=== PATIENT | female | born 1955 | race Asian ===

== ENCOUNTER → 2017-06-30 | Outpatient (CLI) | payer OTHER ==
[2017-06-30 11:51] LABS: HEMOGLOBIN 11.1 g/dL (12.5-16.0); MEAN PLATELET VOLUME 10.9 fl (7.4-10.4); RED BLOOD COUNT 4.6 M/mm3 (4.10-5.30); RED CELL DISTRIBUTION WIDTH 15.2 % (11.5-14.5); WHITE BLOOD COUNT 8.7 K/mm3 (4.8-10.8)
[2017-06-30 12:12] LABS: ALBUMIN 4.1 g/dL (3.5-5.0); BUN/CREATININE RATIO 18.8 (6.0-26.0); CALCIUM 9.5 mg/dL (8.4-10.2); POTASSIUM 4.1 mmol/L (3.6-5.0); TOTAL PROTEIN 8.4 g/dL (6.3-8.2)
== END ==
LOC: LAB 11:30
PROVIDERS: Family Medicine
DX: E11.9 Type 2 diabetes mellitus without complications (principal); E03.9 Hypothyroidism, unspecified

== ENCOUNTER → 2017-07-14 | Outpatient (CLI) | payer OTHER | LOC: MAMMO 07-07 13:00 | DX: Z12.31 Encounter for screening mammogram for malignant neoplasm of breast (principal) ==

== ENCOUNTER → 2018-11-25 | Outpatient (CLI) | payer BC | LOC: RAD 08:35 | DX: M25.561 Pain in right knee (principal) ==

== ENCOUNTER → 2019-02-07 | Outpatient (CLI) | payer BC ==
[2019-02-07 11:17] LABS: EOS # 0.1 (0.04-0.40); EOS % 1.1 % (1.0-5.0); HEMOGLOBIN 10.7 g/dL (12.5-16.0); LYMPH# 1.4 (1.50-4.00); MEAN CELL VOLUME 79 fl (78-100); MEAN CORPUSCULAR HEMOGLOBIN 25 pg (27-31); MEAN CORPUSCULAR HGB CONC 32 g/dL (33-37); MEAN PLATELET VOLUME 11.1 fl (7.4-10.4); MONO # 0.3 (0.20-0.80); NEU # 4.4 (1.40-6.50); PLATELET COUNT 176 K/mm3 (130-400); RED BLOOD COUNT 4.29 M/mm3 (4.10-5.30); WHITE BLOOD COUNT 6.1 K/mm3 (4.8-10.8)
[2019-02-07 12:13] LABS: ALBUMIN 3.6 g/dL (3.4-4.8); POTASSIUM 4.2 mmol/L (3.5-5.1)
[2019-02-07 12:14] LABS: CALCIUM 9.7 mg/dL (8.3-10.5)
[2019-02-07 12:15] LABS: TOTAL PROTEIN 8.2 g/dL (6.2-8.1)
[2019-02-07 12:17] LABS: TOTAL BILIRUBIN 0.7 mg/dL (0.2-1.2)
== END ==
LOC: LAB 10:56
PROVIDERS: Family Medicine
DX: Z00.00 Encounter for general adult medical examination without abnormal findings (principal); Z13.220 Encounter for screening for lipoid disorders; E11.9 Type 2 diabetes mellitus without complications; E03.9 Hypothyroidism, unspecified

== ENCOUNTER → 2019-02-09 | Outpatient (CLI) | payer BC | LOC: RAD 09:59 → MAMMO 10:45 | DX: Z12.31 Encounter for screening mammogram for malignant neoplasm of breast (principal); R92.0 Mammographic microcalcification found on diagnostic imaging of breast; M25.561 Pain in right knee; M17.11 Unilateral primary osteoarthritis, right knee ==

== ENCOUNTER → 2019-02-14 | Outpatient (CLI) | payer BC | LOC: MAMMO 07:29 | DX: R92.0 Mammographic microcalcification found on diagnostic imaging of breast (principal) ==

== ENCOUNTER → 2019-05-26 | Day surgery (SDC) | payer BC | LOC: MSO 09:12 | DX: Z12.11 Encounter for screening for malignant neoplasm of colon (principal); Z86.010 Personal history of colon polyps; Z83.71 Family history of colonic polyps; Z90.49 Acquired absence of other specified parts of digestive tract; E11.9 Type 2 diabetes mellitus without complications; Z79.84 Long term (current) use of oral hypoglycemic drugs; I10 Essential (primary) hypertension; G47.33 Obstructive sleep apnea (adult) (pediatric); E03.9 Hypothyroidism, unspecified; Z79.899 Other long term (current) drug therapy | CPT/HCPCS: 00812; J2704; J7030 ==

== ENCOUNTER → 2020-03-07 | Outpatient (CLI) | payer BC | LOC: MAMMO 12:49 | DX: Z12.31 Encounter for screening mammogram for malignant neoplasm of breast (principal) ==

== ENCOUNTER → 2020-06-29 | Outpatient (CLI) | payer BC | LOC: LAB 12:15 | DX: R05 Cough (principal); Z20.828 Contact with and (suspected) exposure to other viral communicable diseases ==

== ENCOUNTER → 2020-07-02 | Outpatient (CLI) | payer BC ==
[2020-07-02 12:16] LABS: EOS # 0.1 (0.04-0.40); EOS % 0.9 % (1.0-5.0); LYMPH# 1.4 (1.50-4.00); MEAN CELL VOLUME 80 fl (78-100); MEAN CORPUSCULAR HGB CONC 31 g/dL (33-37); MEAN PLATELET VOLUME 11.2 fl (7.4-10.4); MONO # 0.4 (0.20-0.80); NEU # 6.1 (1.40-6.50); PLATELET COUNT 213 K/mm3 (130-400); RED BLOOD COUNT 4.52 M/mm3 (4.10-5.30); RED CELL DISTRIBUTION WIDTH 15.5 % (11.5-14.5); WHITE BLOOD COUNT 7.9 K/mm3 (4.8-10.8)
[2020-07-02 12:20] LABS: MEAN CORPUSCULAR HEMOGLOBIN 24 pg (27-31)
[2020-07-02 12:30] LABS: POTASSIUM 4.5 mmol/L (3.5-5.1)
[2020-07-02 12:31] LABS: ALBUMIN 3.8 g/dL (3.4-4.8)
[2020-07-02 12:32] LABS: CALCIUM 9.4 mg/dL (8.3-10.5)
[2020-07-02 12:35] LABS: TOTAL BILIRUBIN 0.7 mg/dL (0.2-1.2)
== END ==
LOC: LAB 11:16
PROVIDERS: Family Medicine
DX: Z00.00 Encounter for general adult medical examination without abnormal findings (principal); E78.5 Hyperlipidemia, unspecified; E03.9 Hypothyroidism, unspecified; E13.9 Other specified diabetes mellitus without complications

== ENCOUNTER → 2020-08-09 | Outpatient (CLI) | payer BC | LOC: RAD 08:18 | DX: I12.9 Hypertensive chronic kidney disease with stage 1 through stage 4 chronic kidney disease, or unspecified chronic kidney disease (principal); N18.31 Chronic kidney disease, stage 3a ==

== ENCOUNTER → 2020-11-22 | Outpatient (CLI) | payer BC ==
[~2020-11-22] MED LIST: GLIMEPIRIDE4 MG PO; LEVOTHYROXINE112 MCG PO; MELATONIN1 MG PO; METFORMIN HYD1000 MG PO; PAROXETINE HYDR40 MG PO; SIMVASTATIN20 M1 PO; ZESTRIL5 M1 PO
[2020-11-22 15:01] LABS: ALBUMIN 3.7 g/dL (3.4-4.8)
[2020-11-22 15:02] LABS: POTASSIUM 4.8 mmol/L (3.5-5.1)
[2020-11-22 15:03] LABS: CALCIUM 8.9 mg/dL (8.3-10.5)
[2020-11-22 15:27] LABS: URINE APPEARANCE HAZY; URINE BILIRUBIN 1+ (NEGATIVE); URINE BLOOD NEGATIVE (NEGATIVE); URINE COLOR YELLOW; URINE KETONE NEGATIVE (NEGATIVE); URINE LEUKOCYTE ESTERASE NEGATIVE (NEGATIVE); URINE NITRATE NEGATIVE (NEGATIVE); URINE PROTEIN(semi-quant) 1+ mg/dL (NEGATIVE); URINE UROBILINOGEN 1 mg/dL (NORMAL)
[2020-11-22 15:28] LABS: URINE MUCUS PRESENT (NOT PRESENT)
== END ==
LOC: LAB 14:36
PROVIDERS: Internal Medicine Nephrology
DX: I12.9 Hypertensive chronic kidney disease with stage 1 through stage 4 chronic kidney disease, or unspecified chronic kidney disease (principal); E11.21 Type 2 diabetes mellitus with diabetic nephropathy; D63.1 Anemia in chronic kidney disease; N18.31 Chronic kidney disease, stage 3a

== ENCOUNTER 2020-11-29 15:54 | Outpatient (RCR) | payer BC ==
[~2020-11-29] VITALS: Ht 144.8 cm; Wt 96.4 kg
[2020-11-29 16:06] VITALS: BP 118/71
[2020-11-29] MEDS ORDERED: SIMVASTATIN20 M1 PO (16:24)
[2020-11-29] MEDS ORDERED: PAROXETINE HYDR40 MG PO (16:24)
[2020-11-29] MEDS ORDERED: LEVOTHYROXINE112 MCG PO (16:25)
[2020-11-29] MEDS ORDERED: ZESTRIL5 M1 PO (16:25)
[2020-11-29] MEDS ORDERED: MELATONIN1 MG PO (16:26)
[2020-11-29] MEDS ORDERED: METFORMIN HYD1000 MG PO (16:26)
[2020-11-29] MEDS ORDERED: GLIMEPIRIDE4 MG PO (16:26)
--- NOTE | 2020-11-29 16:42 | NUR ---
FEELING SLIGHTLY DIZZY. INFUSION RATE DECREASED TO 250ML/HR.
--- NOTE | 2020-11-29 16:54 | NUR ---
CONTINUES TO FEEL LIGHTHEADED. DECREASE NULECIT INFUSION TO 200ML/HR.
--- NOTE | 2020-11-29 17:06 | NUR ---
FEELING BETTER. ICE WATER AND WARM BLANKET PROVIDED.
--- NOTE | 2020-11-29 17:26 | NUR ---
C/O UPSET STOMACH. DRY HEAVES. INFUSION STOPPED WITH 17ML LEFT TO INFUSE. LEFT MESSAGE WITH ON-CALL PROVIDER AT [facility] TO REQUEST ANTIEMETIC.
--- NOTE | 2020-11-29 17:40 | NUR ---
TO BATHROOM. LARGE BM. STILL FEELING NAUSEOUS. LIGHTHEADED. W/C TO RETURN BACK TO BED. PLACE IN [place] POSITION. DIAPHORETIC.
[2020-11-29 17:50] VITALS: BP 110/72
--- NOTE | 2020-11-29 17:53 | NUR ---
TELEPHONE ORDER FROM [facility] FOR ZOFRAN 8MG IV X1 DOSE NOW. HAVE NOT HEARD BACK FROM PROVIDER BACK HOE MACHINE OPERATOR FROM [facility].
--- NOTE | 2020-11-29 18:22 | NUR ---
CALL [facility] AGAIN. UNABLE TO SPEAK WITH STAFF MINE [employer] OFFICER X2 ATTEMPT. STILL HAVE NOT HEARD BACK FROM PROVIDER WOUND TREATMENT RN. SPEAK WITH DR BOYD, PATIENT'S PCP. RECEIVE ORDERS FOR CMP, CBC, AND 1L NS TO INFUSE OVER [address] BOYD BACK WITH LAB RESULTS.
--- NOTE | 2020-11-29 18:34 | NUR ---
VOMITS APPROX 50ML WHEN UP TO BATHROOM.
--- NOTE | 2020-11-29 18:52 | NUR ---
RETURNS BACK TO BED. POSITION PER COMFORT. IV FLUIDS INFUSING PER ORDER. REPORT PROVIDED TO DALLIN ARROYO. PATIENT NO LONGER DIAPHORETIC. SKIN NO LONGER PALE.
--- NOTE | 2020-11-29 18:54 | NUR ---
BILL CONTACTED PER PATIENT REQUEST. MESSAGE LEFT FOR HIM TO CALL.
--- NOTE | 2020-11-29 20:31 | NUR ---
Dr. Rincon notified of lab results. Pt tolerating Diet Sprite and crackers. Dr. Rincon stated she can DC for home.
[2020-11-29 21:10] VITALS: BP 118/80
--- NOTE | 2020-11-29 21:13 | NUR ---
PT DISCHARGED FOR HOME.
== END 2021-02-27 | disposition still patient (30) ==
LOC: AMSURD
DX: D63.1 Anemia in chronic kidney disease (principal); N18.31 Chronic kidney disease, stage 3a; Z79.899 Other long term (current) drug therapy
CPT/HCPCS: J2405; J2916; J7030; J7050

== ENCOUNTER → 2020-11-29 | Outpatient (CLI) | payer BC ==
[2020-11-29 17:50] VITALS: BP 110/72
[2020-11-29 19:37] LABS: HEMOGLOBIN 12.1 g/dL (12.5-16.0); MEAN PLATELET VOLUME 10.2 fl (7.4-10.4); RED BLOOD COUNT 4.96 M/mm3 (4.10-5.30); WHITE BLOOD COUNT 13.7 K/mm3 (4.8-10.8)
[2020-11-29 19:46] LABS: ALBUMIN 3.4 g/dL (3.4-4.8)
[2020-11-29 19:48] LABS: CALCIUM 8.9 mg/dL (8.3-10.5)
[2020-11-29 19:51] LABS: TOTAL BILIRUBIN 0.5 mg/dL (0.2-1.2)
== END ==
LOC: LAB 18:28
PROVIDERS: Family Medicine
DX: D63.1 Anemia in chronic kidney disease (principal)

== ENCOUNTER → 2021-02-11 | Outpatient (CLI) | payer BC ==
[2021-02-11 11:37] LABS: BASO # 0.01 (0.02-0.10); EOS # 0.05 (0.04-0.40); EOS % 0.7 % (1.0-5.0); HEMATOCRIT 36.4 % (37.0-47.0); HEMOGLOBIN 11.4 g/dL (12.5-16.0); LYMPH# 1.61 (1.50-4.00); MEAN CELL VOLUME 85 fl (78-100); MEAN CORPUSCULAR HEMOGLOBIN 27 pg (27-31); MEAN CORPUSCULAR HGB CONC 31 g/dL (33-37); MEAN PLATELET VOLUME 10.6 fl (7.4-10.4); MONO # 0.25 (0.20-0.80); NEU # 5.53 (1.40-6.50); PLATELET COUNT 153 K/mm3 (130-400); RED BLOOD COUNT 4.28 M/mm3 (4.10-5.30); RED CELL DISTRIBUTION WIDTH 16.5 % (11.5-14.5); WHITE BLOOD COUNT 7.5 K/mm3 (4.8-10.8)
[2021-02-11 11:44] LABS: ALBUMIN 3.6 g/dL (3.4-4.8); POTASSIUM 4.4 mmol/L (3.5-5.1)
[2021-02-11 11:45] LABS: CALCIUM 9.9 mg/dL (8.3-10.5)
[2021-02-11 11:47] LABS: TOTAL PROTEIN 7.7 g/dL (6.2-8.1)
[2021-02-11 11:48] LABS: TOTAL BILIRUBIN 0.6 mg/dL (0.2-1.2)
== END ==
LOC: LAB 11:07
PROVIDERS: Family Medicine
DX: E13.22 Other specified diabetes mellitus with diabetic chronic kidney disease (principal); N18.1 Chronic kidney disease, stage 1; D63.1 Anemia in chronic kidney disease; D50.9 Iron deficiency anemia, unspecified; E03.9 Hypothyroidism, unspecified

== ENCOUNTER → 2021-02-26 | Outpatient (CLI) | payer BC | LOC: MAMMO 09:15 | DX: Z12.39 Encounter for other screening for malignant neoplasm of breast (principal) ==

== ENCOUNTER → 2021-06-01 | Outpatient (CLI) | payer BC ==
[2021-06-01 11:56] LABS: HEMATOCRIT 33.9 % (37.0-47.0); HEMOGLOBIN 10.9 g/dL (12.5-16.0)
[2021-06-01 12:07] LABS: POTASSIUM 4.2 mmol/L (3.5-5.1)
[2021-06-01 12:08] LABS: CALCIUM 9.2 mg/dL (8.3-10.5)
== END ==
LOC: LAB 11:38
PROVIDERS: Family Medicine
DX: N18.31 Chronic kidney disease, stage 3a (principal)

== ENCOUNTER → 2021-07-25 | Outpatient (CLI) | payer BC | LOC: LAB 08:41 | DX: Z76.89 Persons encountering health services in other specified circumstances (principal); Z20.822 Contact with and (suspected) exposure to COVID-19 ==

== ENCOUNTER → 2021-09-17 | Outpatient (CLI) | payer BC ==
[2021-09-17 10:35] LABS: BASO # 0.01 K/mm3 (0.02-0.10); EOS # 0.04 K/mm3 (0.04-0.40); EOS % 0.8 % (1.0-5.0); HEMATOCRIT 33.8 % (37.0-47.0); HEMOGLOBIN 10.9 g/dL (12.5-16.0); LYMPH# 1.28 K/mm3 (1.50-4.00); MEAN CELL VOLUME 86 fl (78-100); MEAN CORPUSCULAR HEMOGLOBIN 28 pg (27-31); MEAN CORPUSCULAR HGB CONC 32 g/dL (33-37); MONO # 0.27 K/mm3 (0.20-0.80); NEU # 3.22 K/mm3 (1.40-6.50); PLATELET COUNT 135 K/mm3 (130-400); RED BLOOD COUNT 3.95 M/mm3 (4.10-5.30); RED CELL DISTRIBUTION WIDTH 15.5 % (11.5-14.5); WHITE BLOOD COUNT 4.8 K/mm3 (4.8-10.8)
[2021-09-17 10:53] LABS: POTASSIUM 4.5 mmol/L (3.5-5.1)
[2021-09-17 10:54] LABS: CALCIUM 9.8 mg/dL (8.3-10.5)
[2021-09-17 10:56] LABS: TOTAL PROTEIN 6.8 g/dL (6.2-8.1)
[2021-09-17 10:57] LABS: TOTAL BILIRUBIN 0.6 mg/dL (0.2-1.2)
[2021-09-17 11:42] LABS: ALBUMIN 3.7 g/dL (3.4-4.8)
== END ==
LOC: LAB 09:35
PROVIDERS: Family Medicine
DX: Z00.00 Encounter for general adult medical examination without abnormal findings (principal); E78.5 Hyperlipidemia, unspecified; E13.9 Other specified diabetes mellitus without complications; E03.9 Hypothyroidism, unspecified; E66.01 Morbid (severe) obesity due to excess calories; G47.33 Obstructive sleep apnea (adult) (pediatric); F32.9 Major depressive disorder, single episode, unspecified

== ENCOUNTER → 2021-12-25 | Outpatient (CLI) | payer BC | LOC: RAD 14:58 | DX: S99.912A Unspecified injury of left ankle, initial encounter (principal) ==

== ENCOUNTER → 2021-12-31 | Outpatient (CLI) | payer BC | LOC: LAB 09:08 | DX: Z20.822 Contact with and (suspected) exposure to COVID-19 (principal); Z76.89 Persons encountering health services in other specified circumstances ==

== ENCOUNTER → 2022-02-19 | Outpatient (RCR) | payer BC | LOC: PT | DX: S93.402A Sprain of unspecified ligament of left ankle, initial encounter (principal) ==

== ENCOUNTER → 2022-08-05 | Outpatient (CLI) | payer BC | LOC: MAMMO 08:30 | DX: Z12.31 Encounter for screening mammogram for malignant neoplasm of breast (principal) ==

== ENCOUNTER → 2022-08-21 | Outpatient (CLI) | payer BC ==
[2022-08-21 08:29] LABS: BASO # 0.02 K/mm3 (0.02-0.10); EOS # 0.04 K/mm3 (0.04-0.40); EOS % 0.6 % (1.0-5.0); HEMATOCRIT 36.2 % (37.0-47.0); HEMOGLOBIN 11.7 g/dL (12.5-16.0); LYMPH# 1.57 K/mm3 (1.50-4.00); MEAN CELL VOLUME 85 fl (78-100); MEAN CORPUSCULAR HEMOGLOBIN 28 pg (27-31); MEAN CORPUSCULAR HGB CONC 32 g/dL (33-37); MEAN PLATELET VOLUME 10.7 fl (7.4-10.4); MONO # 0.42 K/mm3 (0.20-0.80); NEU # 4.72 K/mm3 (1.40-6.50); PLATELET COUNT 139 K/mm3 (130-400); RED BLOOD COUNT 4.26 M/mm3 (4.10-5.30); RED CELL DISTRIBUTION WIDTH 14.8 % (11.5-14.5); WHITE BLOOD COUNT 6.8 K/mm3 (4.8-10.8)
[2022-08-21 08:34] LABS: ALBUMIN 3.9 g/dL (3.4-4.8); POTASSIUM 4.2 mmol/L (3.5-5.1)
[2022-08-21 08:35] LABS: CALCIUM 10.2 mg/dL (8.3-10.5)
[2022-08-21 08:36] LABS: TOTAL PROTEIN 7.4 g/dL (6.2-8.1)
[2022-08-21 08:38] LABS: TOTAL BILIRUBIN 0.7 mg/dL (0.2-1.2)
== END ==
LOC: LAB 08:02
PROVIDERS: Family Medicine
DX: Z00.00 Encounter for general adult medical examination without abnormal findings (principal); E78.5 Hyperlipidemia, unspecified; E13.9 Other specified diabetes mellitus without complications; E03.9 Hypothyroidism, unspecified

== ENCOUNTER → 2023-09-11 | Outpatient (CLI) | payer MEDICARE, BC | LOC: MAMMO 08:54 | DX: Z12.31 Encounter for screening mammogram for malignant neoplasm of breast (principal); M85.851 Other specified disorders of bone density and structure, right thigh; M85.852 Other specified disorders of bone density and structure, left thigh ==

== ENCOUNTER → 2023-09-11 | Outpatient (CLI) | payer MEDICARE, BC | LOC: RAD 08:58 → MAMMO 09:00 | DX: Z12.31 Encounter for screening mammogram for malignant neoplasm of breast (principal); Z13.820 Encounter for screening for osteoporosis; N64.89 Other specified disorders of breast ==

== ENCOUNTER → 2023-11-06 | Outpatient (CLI) | payer MEDICARE, BC ==
[2023-12-28 16:21] LABS: CALCIUM 9.9 mg/dL (8.3-10.5); TOTAL BILIRUBIN 0.7 mg/dL (0.2-1.2); TOTAL PROTEIN 7.2 g/dL (6.2-8.1)
[2023-12-28 16:24] LABS: BASO # 0.03 K/mm3 (0.02-0.10); EOS # 0.05 K/mm3 (0.04-0.40); EOS % 0.9 % (1.0-5.0); HEMATOCRIT 35.5 % (37.0-47.0); HEMOGLOBIN 11.2 g/dL (12.5-16.0); LYMPH# 1.14 K/mm3 (1.50-4.00); MEAN CELL VOLUME 84 fl (78-100); MEAN CORPUSCULAR HEMOGLOBIN 27 pg (27-31); MEAN CORPUSCULAR HGB CONC 32 g/dL (33-37); MEAN PLATELET VOLUME 10.3 fl (7.4-10.4); MONO # 0.28 K/mm3 (0.20-0.80); NEU # 4.05 K/mm3 (1.40-6.50); PLATELET COUNT 146 K/mm3 (130-400); RED BLOOD COUNT 4.22 M/mm3 (4.10-5.30); RED CELL DISTRIBUTION WIDTH 16.2 % (11.5-14.5); WHITE BLOOD COUNT 5.6 K/mm3 (4.8-10.8)
== END ==
LOC: LAB 09:46
PROVIDERS: Family Medicine
DX: E78.5 Hyperlipidemia, unspecified (principal); E55.9 Vitamin D deficiency, unspecified; E11.9 Type 2 diabetes mellitus without complications; E03.9 Hypothyroidism, unspecified

== ENCOUNTER → 2024-02-15 | Day surgery (SDC) | payer MEDICARE, BC | END | disposition home or self-care (01) | LOC: MSO 07:14 | DX: Z12.11 Encounter for screening for malignant neoplasm of colon (principal); K57.30 Diverticulosis of large intestine without perforation or abscess without bleeding; Z80.0 Family history of malignant neoplasm of digestive organs | CPT/HCPCS: G0105; 00812; J2704; J7120 ==

== ENCOUNTER → 2024-06-30 | Outpatient (CLI) | payer MEDICARE, OTHER ==
[2024-06-30 11:52] LABS: BASO # 0.01 K/mm3 (0.02-0.10); EOS # 0.05 K/mm3 (0.04-0.40); EOS % 0.9 % (1.0-5.0); HEMATOCRIT 39.6 % (37.0-47.0); HEMOGLOBIN 13.8 g/dL (12.5-16.0); MEAN CELL VOLUME 89 fl (78-100); MEAN CORPUSCULAR HEMOGLOBIN 31 pg (27-31); MEAN CORPUSCULAR HGB CONC 35 g/dL (33-37); MEAN PLATELET VOLUME 10.3 fl (7.4-10.4); MONO # 0.28 K/mm3 (0.20-0.80); NEU # 3.66 K/mm3 (1.40-6.50); PLATELET COUNT 129 K/mm3 (130-400); RED BLOOD COUNT 4.45 M/mm3 (4.10-5.30); RED CELL DISTRIBUTION WIDTH 13.5 % (11.5-14.5); WHITE BLOOD COUNT 5.4 K/mm3 (4.8-10.8)
== END ==
LOC: LAB 11:33
PROVIDERS: Family Medicine
DX: D69.6 Thrombocytopenia, unspecified (principal); K74.60 Unspecified cirrhosis of liver; D50.9 Iron deficiency anemia, unspecified

== ENCOUNTER → 2024-09-23 | Outpatient (CLI) | payer MEDICARE, OTHER | LOC: RAD 08:57 | DX: M19.011 Primary osteoarthritis, right shoulder (principal); M75.92 Shoulder lesion, unspecified, left shoulder ==

== ENCOUNTER → 2024-10-05 | Outpatient (CLI) | payer MEDICARE, OTHER | LOC: MAMMO 13:02 | DX: Z12.31 Encounter for screening mammogram for malignant neoplasm of breast (principal) ==